=== PATIENT | female | born 1935 | race Caucasian/White ===

== ENCOUNTER 2021-01-15 15:57 | Emergency (ER) | payer MEDICARE ==
[~2021-01-15] VITALS: Ht 157.5 cm; Wt 72.6 kg
[2021-01-15] MEDS ORDERED: OXYMETAZOLINE HCL 0.05% NAS 1 SPRAY BTL ONE ×2 (16:13→16:15)
== END 2021-01-15 16:48 | disposition home or self-care (01) ==
LOC: ER 16:22
DX: R04.0 Epistaxis (principal); I10 Essential (primary) hypertension; I48.91 Unspecified atrial fibrillation; Z95.0 Presence of cardiac pacemaker
CPT/HCPCS: 99283